=== PATIENT | male | born 1975 | race Two or more races ===

== ENCOUNTER 2025-04-04 08:53 | Outpatient (REF) | payer OTHER, MEDICAID, SELFPAY ==
[2025-04-04 11:42] LABS: MANUAL DIFF FLAG NO
[2025-04-04 11:48] LABS: Hematocrit 41.4 % (42.0-52.0); Hemoglobin 14.1 g/dl (14.0-18.0); Imm Gran Abs Auto 0.03 X10*3/uL (0.00-0.03); Imm Gran Pct Auto 0.5 % (0.0-0.4); Lymphocytes Absolute Auto 2.5 X10*3/uL (1.2-4.9); Mean Corpuscular HGB Conc 34.1 g/dl (31.0-36.0); Mean Corpuscular Hemoglobin 31.3 pg (27.0-33.0); Mean Corpuscular Volume 91.8 fL (80.0-98.0); NRBC Abs Auto 0.000 X10*3/uL (0.0-0.012); NRBC Pct Auto 0.0 /100WBC (0.0-0.2); Platelet Count 225 X10*3/uL (160-400); Red Blood Count 4.51 X10*6/uL (4.60-5.80); White Blood Count 6.3 X10*3/uL (4.8-10.8)
[2025-04-04 12:07] LABS: Alanine Aminotransferase 21 U/L (0-40); Albumin Level 4.4 g/dL (3.5-5.0); Alkaline Phosphatase 99 U/L (39-117); Anion Gap 9 (12-20); Aspartate Amino Transferase 24 U/L (5-37); Blood Urea Nitrogen 10 mg/dL (9-16); Calcium 9.3 mg/dL (8.4-10.2); Carbon Dioxide 28 mmol/L (22-29); Chloride 106 mmol/L (96-108); Cholesterol 246 mg/dL (<200); Estimated Glomerular Filt Rate > 60; HDL Cholesterol 49 mg/dL (>40); Potassium 3.8 mmol/L (3.3-5.1); Sodium 139 mmol/L (135-145); Total Protein 6.7 g/dL (6.5-8.0); Triglycerides 243 mg/dL (<150)
[2025-04-04 12:59] LABS: HBS Num1 0.78 mIU/mL (0-7.99); HBc Num1 0.04 S/CO (0.00-0.79); HBsAGNum1 0.33 S/CO (0.00-0.99); HIV Num 1 0.05 S/CO (0.00-0.99); Hepatitis B Surface Antigen Negative (Negative); ~HepC Num1 0.04 S/CO (0.00-0.79); ~Hepatitis B Surface Antibody NONREACTIVE (Nonreactive); ~Hepatitis C Antibody Nonreactive (Nonreactive)
[2025-04-04 13:03] LABS: Vitamin B12 653 pg/mL (200-900)
== END 2025-04-04 08:54 | disposition home or self-care (01) ==
LOC: HO.HHCL 08:53
PROVIDERS: PCP Internal Medicine; Visit Provider Emergency Medicine
DX: Z11.4 Encounter for screening for human immunodeficiency virus [HIV] (principal); E11.9 Type 2 diabetes mellitus without complications; R03.0 Elevated blood-pressure reading, without diagnosis of hypertension
CPT/HCPCS: 36415; 80053; 80061; 82607; 83036; 84443; 85025; 86592; 86704; 86706; 86803; 87340; 87389

== ENCOUNTER 2025-05-17 09:58 | Outpatient (REF) | payer OTHER, MEDICAID, SELFPAY ==
--- NOTE | ~2025-05-17 | XR_ITS ---
EXAMINATION: XR KNEE 4 OR MORE VIEWS RIGHT HISTORY: right knee pain/ had injury 1y ago, sp arthroscopic surgery COMPARISON: There are no prior studies available for comparison. FINDINGS: Four views of the right knee are submitted. Osseous mineralization is normal. There is no fracture or dislocation. There is slight narrowing of the medial compartment. A tiny osteophyte is seen at the superior aspect of the patella. The soft tissues are unremarkable. There is no joint effusion. XR/XR knee RT 4V IMPRESSION: Minimal degenerative changes. Electronically signed by: Donny Andino MD 05/17/2025 11:03 AM SARATH
--- OUTSIDE RECORDS SUMMARY | 2025-05-17 09:15 | XMS_ITS | Encounter Summary ---
Author Organization [employer] Address [address] [place] [address] [address], [place] [address] Care Team Providers Care Materials Manager Name Role Phone Veena Jimenez MD Primary Care Provider + Encounter Details Date Type Department Care Team ([facility] st Contact Info) Description 05/17/2025 9:15 AM EST Office Visit [facility] [address] [place], [place] [phone] Veena Jimenez MD [address] [place], [place] [phone] Primary hypertension (Primary Dx); Type 2 diabetes mellitus with hyperglycemia, without long-term current use of insulin (HCC); Dryness of eye, unspecified laterality; Adjustment disorder with depressed mood; Type 2 diabetes mellitus without complication, without long-term current use of insulin (HCC); Arthritis of right knee Social History Tobacco Use Types Packs/Day Years Used Date Smoking Tobacco: Never Smokeless Tobacco: Never Depression Answer Date Recorded Patient Health Questionnaire-9 Score 12 05/17/2025 Patient Health Questionnaire-9 Score 12 05/17/2025 Last PHQ-9: Questionnaire Data Not on file 1 07/17/2024 Housing Stability Answer Date Recorded What is your housing situation today? I do not have housing (Staying with others, in a hotel, in a senior living, living outside on the street, on a beach, in a car, or in a park 05/10/[address] you li ve. Do you have problems with any of the following? None of the above 05/10/2025 Food Insecurity Answer Date Recorded Within the past 12 months, y ou worried that your food would run out before you got money to buy more: Never True 05/10/2025 Within the past 12 months,th e food you bought just didn't last and you didn't have enough money to get more: Never True Transportation Answer Date Recorded In the past 12 months, has l ack of transportation kept you from medical appts, meetings, work or from getting things needed for daily living? No 05/10/2025 Utilities Answer Date Recorded In the past 12 months, has t he electric, gas, oil or water company threatened to shut off services in your home? No 05/10/2025 Depression Answer Date Recorded Patient Health Questionnaire-2 Score 6 05/17/2025 Internet Access Answer Date Recorded Internet Access Q1 Yes 05/10/2025 Internet Access Q2 Not on file 05/10/2025 Sex and Gender Information Value Date Recorded Sex Assigned at Male 08/06/2022 12:20 PM EST Legal Sex Male 2:58 PM EST Gender Identity Male 08/06/2022 12:20 PM EST Sexual Orientation Straight 08/06/2022 12 :20 PM EST documented as of this encounter Last Filed Vital Signs Vital Sign Reading Time Taken Comments Blood Pressure 142/84 05/17/2025 9:15 AM EST Pulse 70 05/17/2025 9:15 AM EST Temperature 36.2 C (97.1 F) 05/17/2025 9:15 AM EST Respiratory Rate 16 05/17/2025 9:15 AM EST Oxygen Saturation 97% 05/17/2025 9:15 AM EST Inhaled Oxygen Concentration - - Weight 78.9 kg (174 lb) 05/17/2025 9:15 AM EST Height 163 cm (5' 4.17 ) 05/17/2025 9:15 AM EST Body Mass Index 29.71 05/17/2025 9:15 AM EST documented in this encounter Functional Status * Over the past 2 weeks, how often have you been bothered by any of the following problems? Question Answer Date of Assessment Author Patient Health Questionnaire-2 Score 6 04/29 9:17 AM EST Shelia Houston MA * Little interest or pleasure in doing things Answer Date of Assessment Author Nearly every day 05/17/2025 9:17 AM Shelia Stout MA * Feeling down, depressed, or hopeless Answer Date of Assessment Author Nearly every day 05/17/2025 9:17 AM Shelia Stout MA * Trouble falling or staying asleep, or sleeping too much Answer Date of Assessment Author Not at all 05/17/2025 9:17 AM Shelia Stout MA * Feeling tired or having little energy Answer Date of Assessment Author Not at all 05/17/2025 9:17 AM Shelia Stout MA * Poor appetite or overeating Answer Date of Assessment Author Not at all 05/17/2025 9:17 AM Shelia Stout MA * Feeling bad about yourself - or that you are a failure or have let yourself or your family down Answer Date of Assessment Author Nearly every day 05/17/2025 9:17 AM Shelia Stout MA * Trouble concentrating on things, such as reading the newspaper or watching television Answer Date of Assessment Author Nearly every day 05/17/2025 9:17 AM Shelia Stout MA * Moving or speaking so slowly that other people could have noticed? Or the opposite - being so fidgety or restless that you have been moving around a lot more than usual. Answer Date of Assessment Author Not at all 05/17/2025 9:17 AM Shelia Stout MA * Thoughts that you would be better off or hurting yourself in some way Answer Date of Assessment Author Not at all 05/17/2025 9:17 AM Shelia Stout MA * Patient Health Questionnaire-9 Score Answer Date of Assessment Author 12 05/17/2025 9:17 AM Shelia Stout MA * Over the last 2 weeks, how often have you been bothered by any of the following problems? Question Answer Date of Assessment Author Feeling nervous, anxious, or on edge 0 04/29 9:17 AM Shelia Stout MA Not being able to stop or co ntrol worrying 3 05/17/2025 9:17 AM Shelia Stout M A Worrying too much about diff erent things 3 05/17/2025 9:17 AM Shelia Stout M A Trouble relaxing 3 05/17/2025 9:17 AM EST Shelia Ramon MA Being so restless that it is hard to sit still 3 05/17/2025 9:17 AM EST Shelia Houston M A Becoming easily annoyed or irritable 3 04/29 9:17 AM EST Shelia Houston MA Feeling afraid as if somethi ng awful might happen 0 05/17/2025 9:17 AM EST Shelia Houston M Mirta RAFAEL-7 Total Score 15 05/17/2025 9:17 AM EST Shelia Houston MA documented as of this encounter Plan of Treatment Upcoming Encounters Date Type Department Care Team (Late st Contact Info) Description 06/07/2025 3:00 PM EST Clinical Support [facility] [address] [place] [phone] 08/16/2025 12:00 PM EST Office Visit [facility] [address] [place] [phone] Veena Jimenez MD [address] [place] [address] Scheduled Orders Name Type Priority Associated Diagnoses Orde r Schedule Basic Metabolic Panel Lab Routine Primary hypertension Expected: 05/07/2025 (Approximate), Expires: 05/07/2026 documented as of this encounter Goals Goal Patient Goal Type Associated Problems Recent Progress Patient-Stated? Author Help patients manage their type 2 diabetes Care Plan Help patients manage their type 2 diabetes No Blanka Caban Weekly blood pressure task Care Plan Weekly blood pressure task No Blanka Caban Help patients manage their type 2 diabetes Care Plan Help patients manage their type 2 diabetes No Blanka Caban Patient has chronic kidney disease Care Plan Patient has chronic kidney disease No Blanka Caban Weekly blood pressure task Care Plan Weekly blood pressure task No Blanka Caban Patient has chronic kidney disease Care Plan Patient has chronic kidney disease No Blanka Caban Weekly blood pressure task Care Plan Weekly blood pressure task No DuniaFreddie mack Weekly blood pressure task Care Plan Weekly blood pressure task No Dunia Freddie Patient has chronic kidney disease Care Plan Patient has chronic kidney disease No Dunia Freddie Patient has chronic kidney disease Care Plan Patient has chronic kidney disease No Dunia, Freddie Weekly blood pressure task Care Plan Weekly blood pressure task No Shelia Houston MA Weekly blood pressure task Care Plan Weekly blood pressure task No Shelia Houston MA Patient has chronic kidney disease Care Plan Patient has chronic kidney disease No Shelia Houston MA Patient has chronic kidney disease Care Plan Patient has chronic kidney disease No Shelia Houston MA Weekly blood pressure task Care Plan Weekly blood pressure task No Shelia Houston MA Weekly blood pressure task Care Plan Weekly blood pressure task No Shelia Houston MA Patient has chronic kidney disease Care Plan Patient has chronic kidney disease No Shelia Houston MA Patient has chronic kidney disease Care Plan Patient has chronic kidney disease No Shelia Houston MA Weekly blood pressure task Care Plan Weekly blood pressure task No Sangeetha Tomlinandra Weekly blood pressure task Care Plan Weekly blood pressure task No Nabor Janet Patient has chronic kidney disease Care Plan Patient has chronic kidney disease No Janet Tomlin Patient has chronic kidney disease Care Plan Patient has chronic kidney disease No Janet Tomlin documented as of this encounter Procedures Procedure Name Priority Date/Time Associated Diagnosis Comments XR KNEE 4+ VIEWS RIGHT Routine 05/17/2025 10:55 AM EST POCT GLUCOSE Routine 05/17/2025 9:16 AM EST Type 2 diabetes mellitus without complication, without long-term current use of insulin (HCC) documented in this encounter Results * XR Knee 4+ Views Right (05/17/2025 10:55 AM EST) Anatomical Region Laterality Modality Lower Extremities, Knee Right Radiogra phic Imaging 05/17/2025 10:5 5 AM EST Narrative 05/17/2025 11:05 AM EST [address] [address] XRay Report Signed Patient: Ryne Bardales MR#: [id number] : 1975 Acct:[id number] Age/Sex: 49 / M ADM Date: 05/17/25 Loc: HO.HHCX Attending Dr: Veena Jimenez MD Ordering Physician: Veena Jimenez MD Date of Service: 05/17/25 Procedure(s): XR knee RT 4V Accession Number(s): [id number] cc: Veena Jimenez MD Reason for Exam: right knee pain/ had injury 1y ago, sp arthorcopic surgery EXAMINATION: XR KNEE 4 OR MORE VIEWS RIGHT HISTORY: right knee pain/ had injury 1y ago, sp arthroscopic surgery COMPARISON: There are no prior studies available for comparison. FINDINGS: Four views of the right knee are submitted. Osseous mineralization is normal. There is no fracture or dislocation. There is slight narrowing of the medial compartment. A tiny osteophyte is seen at the superior aspect of the patella. The soft tissues are unremarkable. There is no joint effusion. XR/XR knee RT 4V IMPRESSION: Minimal degenerative changes. Electronically signed by: Donny Andino MD 05/17/2025 11:03 AM EST Dictated By: Donny Andino MD Signed By: <Electronically signed by Donny Andino MD in OV> 05/17/25 1103 DD/ 1055 TD/TT: 05/17/25 1057 Farm Laborer: Procedure Note Donotuseinterpreter, Image - 05/17/2025 [place] [address] XRay Report Signed Patient: To Bardales#: [id number] : 1975Acct:[id number] Age/Sex: 49 / MADM Date: 05/17/25 Loc: HO.HHCX Attending Dr: Veena Jimenez MD Ordering Physician: Veena Jimenez MD Date of Service: 05/17/25 Procedure(s): XR knee RT 4V Accession Number(s): [id number] cc: Veena Jimenez MD Reason for Exam: right knee pain/ had injury 1y ago, sp arthorcopicsurgery EXAMINATION: XR KNEE 4 OR MORE VIEWS RIGHT HISTORY: right knee pain/ had injury 1y ago, sp arthroscopic surgery COMPARISON: There are no prior studies available for comparison. FINDINGS: Four views of the right knee are submitted. Osseous mineralization is normal. There is no fracture or dislocation. There is slight narrowing of the medial compartment. A tiny osteophyte is seen at the superior aspect of the patella. The soft tissues are unremarkable. There is no joint effusion. XR/XR knee RT 4V IMPRESSION: Minimal degenerative changes. Electronically signed by: Donny Andino MD 05/17/2025 11:03 AM EST RP Dictated By: Donny Andino MD Signed By: <Electronically signed by Donny Andino MD in OV> 05/17/25 1103 DD/ 1055 TD/TT: 05/17/25 1057 Farm Laborer: us Veena Jimenez MD IMG XR PROCEDURES Final Result * POCT Glucose (05/17/2025 9:16 AM EST) Glucose Blood, POC 142 60 - 200 mg/dL QC Media Lot # [id number] Lot# Expiration Date Blood Capillary blood specimen / Unknown 05/17/2025 9:16 AM EST Veena Jimenez MD POINT OF CARE TEST ENTER /EDIT ORDERABLES Final Result documented in this encounter Visit Diagnoses Diagnosis Primary hypertension- Primary Unspecified essential hypertension Type 2 diabetes mellitus with hyperglycemia, without long-term current use of insulin (HCC) Dryness of eye, unspecified laterality Adjustment disorder with depressed mood Type 2 diabetes mellitus without complication, without long-term current use of insulin (HCC) Arthritis of right knee documented in this encounter Additional Health Concerns Active Problems Noted Date Diagnosed Date Help patients manage their type 2 diabetes 05/10 Weekly blood pressure task 05/10/2025 Help patients manage their type 2 diabetes 05/10 Patient has chronic kidney disease 05/10/2025 Weekly blood pressure task 05/10/2025 Patient has chronic kidney disease 05/10/2025 Weekly blood pressure task 05/10/2025 Weekly blood pressure task 05/10/2025 Patient has chronic kidney disease 05/10/2025 Patient has chronic kidney disease 05/10/2025 Weekly blood pressure task 05/16/2025 Weekly blood pressure task 05/16/2025 Patient has chronic kidney disease 05/16/2025 Patient has chronic kidney disease 05/16/2025 Weekly blood pressure task 05/17/2025 Weekly blood pressure task 05/17/2025 Patient has chronic kidney disease 05/17/2025 Patient has chronic kidney disease 05/17/2025 Weekly blood pressure task 05/17/2025 Weekly blood pressure task 05/17/2025 Patient has chronic kidney disease 05/17/2025 Patient has chronic kidney disease 05/17/2025 Assessment Noted Time PHQ-9 Depression Total Score: 12 025 9:17 AM EST documented as of this encounter Care Teams Materials Manager Relationship Specialty Start Date End Date Veena Jimenez MD [address] [place] [phone] PCP - General Internal Medicine 05/17/25 documented as of this encounter
--- OUTSIDE RECORDS SUMMARY | 2025-05-17 14:40 | XMS_ITS | Encounter Summary ---
Author Organization [employer] Address [address] [facility] [address] [place] [address] Care Team Providers Care Study Assistant Name Role Phone Veena Jimenez MD Primary Care Provider + Encounter Details Date Type Department Care Team (Latest Contact Info) Description 05/17/2025 Travel Social History Tobacco Use Types Packs/Day Years [...] with others, in a hotel, in a prison, living outside on the street, on a [...] t he electric, gas, oil or water [employer] threatened to shut off services in your [...] PM EST documented as of this encounter Functional Status * Over the [...] to sit still 3 05/17/2025 9:17 AM Shelia Stout M A Becoming easily annoyed or irritable 3 04/29 9:17 AM Shelia Stout MA Feeling afraid as if somethi ng awful might happen 0 05/17/2025 9:17 AM Shelia Stout M A RAFAEL-7 Total Score 15 05/17/2025 9:17 AM Shelia Stout MA documented as of this encounter Plan of Treatment Upcoming Encounters Date Type Department Care Team (Late st Contact Info) Description 06/07/2025 3:00 PM EST Clinical Support [facility] MED[facility]INE [address] [place] [phone] 08/16/2025 12:00 PM EST Office Visit [facility] [address] [place] [phone] Veena Jimenez MD [address] [place] [address] documented as of this encounter Goals Goal Patient Goal Type Associated Problems Recent Progress Patient-Stated? Author Help patients manage their type 2 diabetes Care Plan Help patients manage their type 2 diabetes Blanka Noguera Weekly blood pressure task Care Plan Weekly [...] Care Plan Weekly blood pressure task No Dunia, Freddie Weekly blood pressure task Care Plan Weekly blood pressure task No Dunia Freddie Patient has chronic kidney disease Care Plan Patient has chronic kidney disease No Dunia Freddie Patient has chronic kidney disease Care Plan Patient has chronic kidney disease No Dunia Freddie Weekly blood pressure task Care Plan Weekly blood pressure task No Houston Shelia MA Weekly blood pressure task Care Plan Weekly blood pressure task No Houston Shelia MA Patient has chronic kidney disease Care Plan Patient has chronic kidney disease No HoustonShelia miller MA Patient has chronic kidney disease Care Plan Patient has chronic kidney disease No HoustonShelia MA Weekly blood pressure task Care Plan Weekly blood pressure task No Houston Shelia MA Weekly blood pressure task Care Plan Weekly blood pressure task No Houston, Shelia, MA Patient has chronic kidney disease Care Plan Patient has chronic kidney disease No Houston Shelia MA Patient has chronic kidney disease Care Plan Patient has chronic kidney disease No Houston Shelia MA Weekly blood pressure task Care Plan Weekly blood pressure task No Janet Tomlin Weekly blood pressure task Care Plan Weekly blood pressure task No Janet Tomlin Patient has chronic kidney disease Care Plan Patient has chronic kidney disease No Janet Tomlin Patient has chronic kidney disease Care Plan Patient has chronic kidney disease No Janet Tomlin documented as of this encounter Visit Diagnoses Not on filedocumented in this encounter Additional Health Concerns Active [...] documented as of this encounter Care Teams Study Assistant Relationship Specialty Start Date End Date Veena Jimenez MD [address] [place] [phone] PCP - General Internal Medicine 05/17/25 documented as of this encounter
--- OUTSIDE RECORDS SUMMARY | 2025-05-17 14:41 | XMS_ITS | Encounter Summary ---
Author Organization [email or web address] Address [address] [place] [address] [address] Care Team Providers Care Geographic Information Systems Analyst Name Role Phone Veena Jimenez MD Primary Care Provider + Encounter Details Date Type Department Care Team (Latest Contact Info) Description 04/05/2025 Results Follow-Up [facility] MEDICINE [address] [place] [address] Veena Jimenez MD [address] [place] [address] CBC auto differential, Comprehensive Metabolic Panel, Hemoglobin A1c, Additional followed-up results: 8 Social History Tobacco Use Types Packs/Day Years Used Date Smoking Tobacco: Never Smokeless Tobacco: Never Sex and Gender Information Value Date Recorded Sex Assigned at Male 08/06/2022 12:20 PM EST Legal Sex Male 2:58 PM EST Gender Identity Male 08/06/2022 12:20 PM EST Sexual Orientation Straight 08/06/2022 12 :20 PM EST documented as of this encounter Miscellaneous Notes * Result Encounter Note - Veena Jimenez MD - 04/05/2025 1:53 PM EDT Labs on 04/04/2025 show uncontrolled diabetes and hyperlipidemia and patient has been scheduled for follow-up with me for abnormal labs next week, prior to ENVIRONMENTAL DIRECTOR appointment. I will address POC at that time documented in this encounter Plan of Treatment Upcoming Encounters Date Type Department Care Team (Late st Contact Info) Description 06/07/2025 3:00 PM EST Clinical Support [address] [phone] 08/16/2025 12:00 PM EST Office Visit [address] [phone] Veena Jimenez MD [address] [place] [phone] documented as of this encounter Visit Diagnoses Not on filedocumented in this encounter Care Teams Geographic Information Systems Analyst Relationship Specialty Start Date End Date Veena Jimenez MD [address] [place] [phone] PCP - General Internal Medicine 05/17/25 documented as of this encounter
--- OUTSIDE RECORDS SUMMARY | 2025-05-17 14:41 | XMS_ITS | Encounter Summary ---
Author Organization [employer] Address [address] [place] [address] [address], [place] [address] Care Team Providers Care International Relations Professor Name Role Phone Unavailable Primary Care Provider Unavailabl e Reason for Visit * Reason Onset Date Comments Chart prep 05/16/2025 Encounter Details Date Type Department Care Team ([facility] st Contact Info) Description 05/16/2025 Telephone [facility]INE [address] [place] [address] Veena Jimenez MD [address] [place] [address] Chart prep Social History Tobacco Use Types Packs/Day Years [...] with others, in a hotel, in a skilled nursing, living outside on the street, on a [...] as of this encounter Miscellaneous Notes * Telephone Encounter - Shelia Houston MA - 05/16/2025 3:05 PM EST Chart Prep Labs: done Images: not applicable Referrals: appointment pending Ophthalmology Vaccines due: Covid, Flu, PCV20, Tdap, Hep B, and Zoster Screenings: colonoscopy, eye exam, foot exam, and PISQ Overdue care gaps: Glucose, SBIRT, PHQ-9, and RAFAEL-7 documented in this encounter Plan of Treatment Upcoming Encounters Date Type Department Care Team (Late st Contact Info) Description 06/07/2025 3:00 PM EST Clinical Support [facility] MED[facility]INE [address] [place] [phone] 08/16/2025 12:00 PM EST Office Visit [facility] [address] [place] [phone] Veena Jimenez MD [address] [place] [phone] documented as of this encounter Goals Goal Patient Goal Type Associated Problems Recent Progress Patient-Stated? Author Help patients manage their type 2 diabetes Care Plan Help patients manage their type 2 diabetes Blanka Noguera Weekly blood pressure task Care Plan Weekly blood pressure task Blanka Noguera Help patients manage their type 2 diabetes [...] chronic kidney disease No Shelia Houston MA documented as of this encounter Visit Diagnoses [...] 05/16/2025 Patient has chronic kidney disease 05/16/2025 documented as of this encounter
--- OUTSIDE RECORDS SUMMARY | 2025-05-17 14:41 | XMS_ITS | Clinical Summary ---
Author Organization [employer] Address [address] [facility] [address] [place] [address] Care Team Providers Care Dispensing And Measuring Optician Name Role Phone Veena Jimenez MD Primary Care Provider + Allergies No known active allergies Medications Blood Pressure kit 1 each 2 times daily. 1 kit 03/21/20 25 026 Active Alcohol Swabs (Alcohol Prep) pads 1 each 2 times daily. 100 each 2 03/21/20 25 Active FREESTYLE LITE test strip Use as instructed 100 each 2 03/21/20 25 Active Blood Glucose Monitoring Suppl (FreeStyle Lite) w/Device kit 1 each 2 times daily. 1 kit 03/21/20 25 Active Lancets 33G misc 1 each 2 times daily. 100 each 2 03/21/20 25 Active metFORMIN (Glucophage) 1000 MG tablet Take 1 tablet (1,000 mg) by mouth with breakfast and with evening meal. 60 tablet 2 03/21/20 25 026 Active losartan (Cozaar) 50 MG tablet Take 1 tablet (50 mg) by mouth Once per day. 90 tablet 05/07/20 25 026 Active Polyvinyl Alcohol-Povido ne 5-6 MG/ML solution Use 2gtt on each eye tid 15 mL 1 05/17/20 25 Active atorvastatin (Lipitor) 40 MG tablet Take 1 tablet (40 mg) by mouth at bedtime. 30 tablet 11 5 11:43 AM EST 05/17/20 25 026 Active losartan (Cozaar) 25 MG tablet Take 1 tablet (25 mg) by mouth Once per day. 30 tablet 5 03/21/20 25 025 Discontinued Active Problems Problem Noted Date Diagnosed Date Primary hypertension 05/17/2025 Dryness of eye 05/17/2025 Adjustment disorder with depressed mood 05/17/20 25 Type 2 diabetes mellitus wit h hyperglycemia, without long-term current use of insulin 03/21/2025 Resolved Problems Problem Noted Date Diagnosed Date Resolved Date Elevated blood pressure read ing in office without diagnosis of hypertension 05/17/20252024 Encounters Date Type Department Care Team Description 05/17/2025 9:15 AM EST Office Visit [address] [address] Veena Jimenez MD Primary hypertension (Primary Dx); Type 2 diabetes mellitus with hyperglycemia, without long-term current use of insulin (HCC); Dryness of eye, unspecified laterality; Adjustment disorder with depressed mood; Type 2 diabetes mellitus without complication, without long-term current use of insulin (HCC); Arthritis of right knee 05/17/2025 Travel 05/16/[address] [address] Veena Jimenez MD Chart prep 05/10/2025 Patient Outreach [address] [address] Veena Jimenez MD Care Coordination ([facility] outreach for [facility] housing search-will meet in person 05/17) 05/10/2025 Patient Outreach [address] [address] Veena Jimenez MD 05/07/2025 10:30 AM EST Clinical Support [address] [address] Francoise Grant RN Elevated blood pressure reading in office without diagnosis of hypertension 05/07/2025 Travel 04/25/2025 Travel 04/05/2025 Results Follow-Up [address] [place] [address] Veena Jimenez MD CBC auto differential, Comprehensive Metabolic Panel, Hemoglobin A1c, Additional followed-up results: 8 04/04/2025 10:30 AM EDT Clinical Support [address] [place] [address] Maye Del Rio RN Elevated blood pressure reading in office without diagnosis of hypertension 04/04/2025 Travel 04/03/2025 Travel 03/21/2025 9:40 [address] EDT [address] [facility] [address] [place] [address] Luis Tyler MD Eye discomfort, bilateral (Primary Dx); Type 2 diabetes mellitus without complication, without long-term current use of insulin (CMS/HCC); Elevated blood pressure reading in office without diagnosis of hypertension 03/21/2025 Travel from Last 3 Months Social History Tobacco Use Types Packs/Day Years Used Date Smoking Tobacco: Never Smokeless Tobacco: Never Tobacco Cessation:Counseling Given: Not Answered Depression Answer Date Recorded Patient Health Questionnaire-9 Score 12 05/17/2025 Patient Health Questionnaire-9 Score 12 05/17/2025 Last PHQ-9: Questionnaire Data Not on file 1 07/17/2024 Housing Stability Answer Date Recorded What is your housing situation today? I do not have housing (Staying with others, in a hotel, in a [place] [facility] [place], living outside on the street, on a [...] Orientation Straight 08/06/2022 12 :20 PM EST Last Filed Vital Signs Vital Sign Reading [...] Mass Index 29.71 05/17/2025 9:15 AM EST Plan of Treatment Upcoming Encounters Date Type Department Care Team (Late st Contact Info) Description 06/07/2025 3:00 PM EST Clinical Support [facility] [address] [place] [phone] 08/16/2025 12:00 PM EST Office Visit [facility] [address] [place] [phone] Veena Jimenez MD [address] [place] [phone] Health Maintenance Due Date Last Done Comments CT Colonography 1973 Colonoscopy 1973 Colorectal Cancer Screening 1973 FIT DNA/Cologuard 1973 FIT 1973 FOBT 1973 Sigmoidoscopy 1973 Diabetes: Foot Exam 1983 Eye Exam 1983 Alcohol/Substance Use Screening 1985 Family Planning (PISQ) 1988 DTaP/Tdap/Td Vaccines (1 - Tdap) 1992 Diabetes: Urine Protein Screening 1992 Hepatitis B Vaccines (1 of 3 - 19+ 3-dose series) 1992 Pneumococcal Vaccine: 50+ Years (1 of 2 - PCV) 1992 Zoster Vaccines (1 of 2) 2023 COVID-19 Vaccine (1 - 2024-2 6 season) 2025 Influenza Vaccine (#1) 2025 Diabetes: Hemoglobin A1C 07/05/2025 04/04/2025 Depression Monitoring 11/14/2025 05/17/2025 , 05/17/2025 Tobacco Screening 03/21/2026 03/21/2025 Disability Screening 04/03/2026 04/03/2025 Lipid Panel 04/04/2026 04/04/2025 SDOH Screening 05/10/2026 05/10/2025 RSV Patients and Patients Aged 60 years or older (1 - 1-dose 75+ series) 2048 HIV Screening Completed 04/04/2025 Hepatitis C Screening Completed 04/04/2025 HIB Vaccines Aged Out No longer eligi ble based on patient's age to complete this topic HPV Vaccines Aged Out No longer eligi ble based on patient's age to complete this topic Hepatitis A Vaccines Aged Out No long er eligible based on patient's age to complete this topic IPV Vaccines Aged Out No longer eligi ble based on patient's age to complete this topic Meningococcal B Vaccine Aged Out No l onger eligible based on patient's age to complete this topic Meningococcal Vaccine Aged Out No katia jelani eligible based on patient's age to complete this topic RSV under 20 months Aged Out No longe r eligible based on patient's age to complete this topic Rotavirus Vaccines Aged Out No longer eligible based on patient's age to complete this topic Goals Goal Patient Goal Type Associated Problems [...] Care Plan Patient has chronic kidney disease Blanka Noguera Weekly blood pressure task Care Plan Weekly blood pressure task No Freddie Duque Weekly blood pressure task Care Plan Weekly blood pressure task No Freddie Duque Patient has chronic kidney disease Care Plan Patient has chronic kidney disease No Dunia Freddie Patient has chronic kidney disease Care Plan Patient has chronic kidney disease No Freddie Duque Weekly blood pressure task Care Plan Weekly [...] has chronic kidney disease No Janet Tomlin Procedures Procedure Name Priority Date/Time Associated Diagnosis Comments XR KNEE 4+ VIEWS RIGHT Routine 05/17/2025 10:55 AM EST POCT GLUCOSE Routine 05/17/2025 9:16 AM EST Type 2 diabetes mellitus without complication, without long-term current use of insulin (HCC) LIPID PANEL, STANDARD Routine 04/04/2025 9:02 AM EDT Type 2 diabetes mellitus without complication, without long-term current use of insulin (HCC) Elevated blood pressure reading in office without diagnosis of hypertension RPR (MONITOR) W/REFL TITER Routine 04/04/2025 9:02 AM EDT Type 2 diabetes mellitus without complication, without long-term current use of insulin (HCC) Elevated blood pressure reading in office without diagnosis of hypertension HIV 1/2 ANTIGEN/ANTIBODY, FOURTH GENERATION W/RFL Routine 04/04/2025 9:02 AM EDT Type 2 diabetes mellitus without complication, without long-term current use of insulin (HCC) Elevated blood pressure reading in office without diagnosis of hypertension HEPATITIS C AB W/REFL TO HCV RNA, QN, PCR Routine 04/04/2025 9:02 AM EDT Type 2 diabetes mellitus without complication, without long-term current use of insulin (HCC) Elevated blood pressure reading in office without diagnosis of hypertension HEPATITIS B SURFACE ANTIGEN, EIA Routine 04/04/2025 9:02 AM EDT Type 2 diabetes mellitus without complication, without long-term current use of insulin (HCC) Elevated blood pressure reading in office without diagnosis of hypertension HEPATITIS B SURFACE ANTIBODY, QUALITATIVE Routine 04/04/2025 9:02 AM EDT Type 2 diabetes mellitus without complication, without long-term current use of insulin (HCC) Elevated blood pressure reading in office without diagnosis of hypertension HEPATITIS B CORE AB TOTAL Routine 04/04/2025 9:02 AM EDT Type 2 diabetes mellitus without complication, without long-term current use of insulin (HCC) Elevated blood pressure reading in office without diagnosis of hypertension TSH W/REFLEX TO FT4 Routine 04/04/2025 9 :02 AM EDT Type 2 diabetes mellitus without complication, without long-term current use of insulin (HCC) Elevated blood pressure reading in office without diagnosis of hypertension VITAMIN B12 Routine 04/04/2025 9:02 AM EDT Type 2 diabetes mellitus without complication, without long-term current use of insulin (HCC) Elevated blood pressure reading in office without diagnosis of hypertension HEMOGLOBIN A1C Routine 04/04/2025 9:02 AM EDT Type 2 diabetes mellitus without complication, without long-term current use of insulin (HCC) Elevated blood pressure reading in office without diagnosis of hypertension COMPREHENSIVE METABOLIC PANEL Routine 04/04/2025 9:02 AM EDT Type 2 diabetes mellitus without complication, without long-term current use of insulin (HCC) Elevated blood pressure reading in office without diagnosis of hypertension CBC WITH AUTO DIFFERENTIAL Routine 04/04/2025 9:02 AM EDT Type 2 diabetes mellitus without complication, without long-term current use of insulin (HCC) Elevated blood pressure reading in office without diagnosis of hypertension from Last 3 Months Results * XR Knee 4+ Views Right (05/17/2025 10:55 AM EST) Anatomical Region Laterality Modality Lower Extremities, Knee Right Radiogra phic Imaging 05/17/2025 10:5 5 AM EST Narrative 05/17/2025 11:05 AM EST [facility] [address] [place] [address] XRay Report Signed Patient: Ryne Bardales MR#: [id number] : 1975 Acct:[id number] Age/Sex: 49 / M ADM Date: 05/17/25 Loc: HO.HHCX Attending Dr: Veena Jimenez MD Ordering Physician: Veena Jimenez MD Date of Service: 05/17/25 Procedure(s): XR knee RT 4V Accession Number(s): [id number] cc: Veena Jimenez MD Reason for Exam: [...] 05/17/25 1103 DD/ 1055 TD/TT: 05/17/25 1057 Specification Consultant: Procedure Note Donotuseinterpreter, Image - 05/17/[address] [address] XRay Report Signed Patient: To Bardales#: [id number] : 1975Acct:[id number] Age/Sex: 49 / MADM Date: 05/17/25 Loc: [facility] Attending Dr: Veena Jimenez MD Ordering Physician: Veena Jimenez MD Date of Service: 05/17/25 Procedure(s): XR knee RT 4V Accession Number(s): [id number] cc: Veena Jimenez MD Reason for Exam: [...] 05/17/25 1103 DD/ 1055 TD/TT: 05/17/25 1057 Specification Consultant: us Veena Jimenez MD IMG XR PROCEDURES Final Result * POCT Glucose (05/17/2025 9:16 AM EST) Glucose Blood, POC 142 60 - 200 mg/dL QC Media Lot # [id number] Lot# Expiration Date , Blood Capillary blood specimen / Unknown 05/17/2025 9:16 AM EST us Veena Jimenez MD POINT OF CARE TEST ENTER /EDIT ORDERABLES Final Result * TSH with Reflex to Free T4 (04/04/2025 9:02 AM EDT) Pathologist [facility] TSH reflex Free T4 1.93 0.32 - 4.0 uIU/mL [facility] Blood Venous blood specimen / Unknown 04/04/2025 9:02 AM EDT 04/04/2025 11:37 AM EDT Luis Tyler MD LAB BLOOD ORDERABLES Final Resul t Performing Organization Address City/State/[facility] Co de Phone Number [facility] [address] [place] [phone] * (ABNORMAL) CBC auto differential (04/04/2025 9:02 AM EDT) Pathologist [facility] White Blood Count 6.3 4.8 - 10.8 X10*3/uL [facility] Red Blood Count 4.51(L) 4.60 - 5.80 X10*6/uL [facility] Hemoglobin 14.1 14.0 - 18.0 g/dl [facility] Hematocrit 41.4(L) 42.0 - 52.0 % [facility] Mean Corpuscular Volume 91.8 80.0 - 98.0 fL [facility] Mean Corpuscular Hemoglobin 31.3 27.0 - 33.0 pg [facility] Mean Corpuscular HGB Conc 34.1 31.0 - 36.0 g/dl [facility] Red Cell Distribution Width 13.1 11.0 - 16.0 % [facility] Platelet Count 225 160 - 400 X10*3/uL [facility] Mean Platelet Volume 11.5 9.4 - 12.4 fL [facility] Neutrophils Percent Auto 52.0 45 - 73 % [facility] Imm Gran Pct Auto 0.5(H) 0.0 - 0.4 % [facility] Lymphocytes Percent Auto 39.9 20 - 40 % [facility] Monocytes Percent Auto 6.5 2 - 11 % [facility] Eosinophils Percent Auto 0.5 0 - 4 % [facility] Basophils Percent Auto 0.6 0 - 2 % [facility] NRBC Pct Auto 0.0 0.0 - 0.2 /100WBC [facility] Neutrophils Absolute Auto 3.3 2.0 - 8.3 x10*3/uL [facility] Imm Gran Abs Auto 0.03 0.00 - 0.03 X10*3/uL [facility] Lymphocytes Absolute Auto 2.5 1.2 - 4.9 X10*3/uL [facility] Monocytes Absolute Auto 0.4 0.1 - 1.2 X10*3/uL [facility] Eosinophils Absolute Auto 0.0 0.0 - 0.4 X10*3/uL [facility] Basophils Absolute Auto 0.0 0.0 - 0.2 X10*3/uL [facility] NRBC Abs Auto 0.000 0.0 - 0.012 X10*3/uL [facility] Blood Venous blood specimen / Unknown 04/04/2025 9:02 AM EDT 04/04/2025 11:37 AM EDT us Luis Tyler MD LAB BLOOD ORDERABLES Final Resul t [facility] [address] [place] [address] [phone] * Hepatitis C Antibody with Reflex to HCV, RNA, Quantitative, Real-Time PCR (04/04/2025 9:02 AM EDT) Hepatitis C Antibody Nonreactive Nonreactive [facility] Comment:Antibodies to HCV no t detected; does not exclude early acuteHCV infection. Blood Venous blood specimen / Unknown 04/04/2025 9:02 AM EDT 04/04/2025 11:37 AM EDT us Luis Tyler MD LAB BLOOD ORDERABLES Final Resul t Performing Organization Address [facility] de Phone Number [facility] [address] [place] [phone] * Hepatitis B surface antigen, EIA (04/04/2025 9:02 AM EDT) Hepatitis B Surface Ag Negative Negative [facility] Blood Venous blood specimen / Unknown 04/04/2025 9:02 AM EDT 04/04/2025 11:37 AM EDT us Luis Tyler MD LAB BLOOD ORDERABLES Final Resul t Performing Organization Address [facility] de Phone Number [facility] [address] [place] [phone] * Hepatitis B Core Antibody, Total (04/04/2025 9:02 AM EDT) Hepatitis B Core Antibody Nonreactive Nonreactive [facility] Blood Venous blood specimen / Unknown 04/04/2025 9:02 AM EDT 04/04/2025 11:37 AM EDT us Luis Tyler MD LAB BLOOD ORDERABLES Final Resul t Performing Organization Address [facility] de Phone Number [facility] [address] [place] [phone] * RPR (Monitor) with Reflex to??Titer (04/04/2025 9:02 AM EDT) RPR (Monitor) w/Refl Titer NON-REACTI VE NON-REACT [facility] Comment:THIS TEST WAS PERFOR MED AT:[employer] [place] [phone] GIBSON MD Rapid Plasma Reagin Ab Titer TNP [facility] Blood Venous blood specimen / Unknown 04/04/2025 9:02 AM EDT 04/04/2025 11:37 AM EDT us Luis Tyler MD LAB BLOOD ORDERABLES Final Resul t Performing Organization Address City/[facility]/ZIP Co de Phone Number [facility] [address] [place] [phone] * HIV-1/2 Antigen and Antibodies, Fourth Generation, with Reflexes (04/04/2025 9:02 AM EDT) HIV AB/AG Nonreactive Nonreactive [facility] Comment:HIV-1 p24 Ag and/or HIV-1/HIV-2 Ab not detected.A test result that is nonreactive does not exclude thepossibility of exposure to or infection with HIV-1 and/orHIV-2. Nonreactive results in this assay for individualswith prior exposure to HIV-1 and/or HIV-2 may be due toantigen and antibody levels that are below the limit ofdetection of this assay.The Synapse HIV Ag/Ab Combo assay result andsupplemental assay results should be interpreted inconjunction with the patient's clinical presentation,history and other laboratory results. If the results areinconsistent with clinical evidence, additional testing issuggested to confirm the result. Blood Venous blood specimen / Unknown 04/04/2025 9:02 AM EDT 04/04/2025 11:37 AM EDT us Luis Tyler MD LAB BLOOD ORDERABLES Final Resul t Performing Organization Address City/[facility]/ZIP Co de Phone Number [facility] [address] [place] [phone] * Hepatitis B Surface Antibody, Qualitative (04/04/2025 9:02 AM EDT) ~Hepatitis B Surface Antibody NONREACTIVE Nonreactive [facility] Comment:Nonreactive: < 8.00 mIU/mL Blood Venous blood specimen / Unknown 04/04/2025 9:02 AM EDT 04/04/2025 11:37 AM EDT us Luis Tyler MD LAB BLOOD ORDERABLES Final Resul t Performing Organization Address [facility] Co de Phone Number [facility] [address] [place] [phone] * (ABNORMAL) Hemoglobin A1c (04/04/2025 9:02 AM EDT) Hemoglobin A1c 10.1(H) <6.0 % [facility] Comment:Hemoglobin A1C Refer ence Range Adults: 4.8 - 6.0 % Non diabetic: < 6.0 % Goal: < 7.0 %Additional Action Suggested: > 8.0 %Note: Hemoglobin A1c results are invalid for patients with abnormal amounts of HbF. Blood transfusions may impact the HbA1c concentration in the patient sample. Estimated Average Glucose 243 mg/dL [facility] Comment:eAG = Estimated ave rage glucose which is %A1C expressed asaverage glucose, using the formula of the [id number] Glucose study (ADAG), Diabetes Care, Vol.31,#8,2007 Blood Venous blood specimen / Unknown 04/04/2025 9:02 AM EDT 04/04/2025 11:37 AM EDT us Luis Tyler MD LAB BLOOD ORDERABLES Final Resul t Performing Organization Address [facility] de Phone Number [facility] [address] [place] [phone] * Vitamin B12 (04/04/2025 9:02 AM EDT) Vitamin B12 653 200 - 900 pg/mL [facility] Comment:NORMAL 200-900 PG/ML INDETERMINATE 160-199 PG/ML DEFICIENT < 160 PG/ML Blood Venous blood specimen / Unknown 04/04/2025 9:02 AM EDT 04/04/2025 11:37 AM EDT us Luis Tyler MD LAB BLOOD ORDERABLES Final Resul t Performing Organization Address [facility] Co de Phone Number [facility] [address] [place] [phone] * (ABNORMAL) Lipid Panel, Standard (04/04/2025 9:02 AM EDT) Triglycerides 243(H) <150 mg/dL [facility] Comment:Desirable Triglyceri de: less than 150 mg/dLBorderline High Triglyceride 150-199 mg/dLHigh Triglyceride: 200-499 mg/dLVery High Triglyceride: greater than or equal to 5OO mg/dL Cholesterol 246(H) <200 mg/dL [facility] Comment:Desirable Cholestero l: less than 200 mg/dLBorderline High Cholesterol: 200-239 mg/dLHigh Cholesterol: greater than 239 mg/dL LDL Cholesterol Calculated 149(H) <100 mg/dL [facility] Comment:Desirable LDL: less than 100 mg/dLNear Optimal/Above Optimal LDL: 110- 129 mg/dLBorderline High LDL: 130-159 mg/dLHigh LDL: 160-189 mg/dLVery High LDL: greater than or equal to 190 mg/dL HDL Cholesterol 49 >40 mg/dL [facility] Comment:Desirable HDL: great er than 40 mg/dL Note: This HDL assay may give artificially low results in patients with liver disease. Blood Venous blood specimen / Unknown 04/04/2025 9:02 AM EDT 04/04/2025 11:37 AM EDT us Luis Tyler MD LAB BLOOD ORDERABLES Final Resul t [facility] [address] [place] [address] [phone] * (ABNORMAL) Comprehensive Metabolic Panel (04/04/2025 9:02 AM EDT) Sodium 139 135 - 145 mmol/L [facility] Potassium 3.8 3.3 - 5.1 mmol/L [facility] Chloride 106 96 - 108 mmol/L [facility] Carbon Dioxide 28 22 - 29 mmol/L [facility] Anion Gap 9(L) 12 - 20 [facility] Urea Nitrogen (BUN) 10 9 - 16 mg/dL [facility] Creatinine, Serum 0.57 0.5 - 1.4 mg/dL [facility] Estimated Glomerular Filt Rate >60 [facility] Comment:Chronic Kidney Disea se: Estimated GFR < 60 mL/min/[id number] Kidney Disease: Estimated GFR < 15 mL/min/1.73m2 Glucose 147(H) 60 - 115 mg/dL [facility] Calcium 9.3 8.4 - 10.2 mg/dL [facility] Bilirubin, Total 0.6 0.0 - 1.0 mg/dL [facility] Aspartate Amino Transferase 24 5 - 37 U/L [facility] Alanine Aminotransferase 21 0 - 40 U/L [facility] Total Protein 6.7 6.5 - 8.0 g/dL [facility] Albumin Level 4.4 3.5 - 5.0 g/dL [facility] Alkaline Phosphatase 99 39 - 117 U/L [facility] Blood Venous blood specimen / Unknown 04/04/2025 9:02 AM EDT 04/04/2025 11:37 AM EDT us Luis Tyler MD LAB BLOOD ORDERABLES Final Resul t [facility] [address] [place] [phone] from Last 3 Months Additional Health Concerns Active Problems Noted Date [...] 05/17/2025 Patient has chronic kidney disease 05/17/2025 Insurance [facility] HSN FULL HSN FULL Care Teams Dispensing And Measuring Optician Relationship Specialty Start Date End Date Veena Jimenez MD [address] [place] [phone] PCP - General Internal Medicine 05/17/25
== END 2025-05-17 09:59 | disposition home or self-care (01) ==
LOC: HO.HHCX 09:58
PROVIDERS: PCP Internal Medicine; Visit Provider Internal Medicine
DX: M17.11 Unilateral primary osteoarthritis, right knee (principal)
CPT/HCPCS: 73564

== ENCOUNTER → 2025-05-17 10:09 | Outpatient (BNV) | payer SELFPAY | PROVIDERS: PCP Internal Medicine; Visit Provider Radiology Diagnostic Radiology | DX: M25.561 Pain in right knee (principal) | CPT/HCPCS: 73564 ==